=== PATIENT | male | born 1960 | race Caucasian/White ===

== ENCOUNTER 2019-12-26 08:48 | Day surgery (SDC) | payer OTHER, SELFPAY ==
[~2019-12-26] VITALS: Ht 172.7 cm; Wt 90.7 kg
[2019-12-26] MEDS ORDERED: fentaNYL citrate 0.05 MG/ML VIAL ONE (11:51)
[2019-12-26] MEDS ORDERED: LIDOCAINE 2% 100 MG/5 ML UJET TP ONE (11:52)
[2019-12-26] MEDS ORDERED: MIDAZOLAM 5 MG/5 ML VIAL ONE (11:52)
[2019-12-26] MEDS ORDERED: fentaNYL citrate 0.05 MG/ML VIAL IVP ONE (15:20)
[2019-12-26] MEDS ORDERED: MIDAZOLAM 2 MG/2 ML VIAL IVP ONE (15:20)
== END 2019-12-26 12:50 | disposition home or self-care (01) ==
LOC: MDS 08:48 → MMU 08:49 → MDS 12:50
PROVIDERS: ATTEND Internal Medicine Gastroenterology
DX: R19.5 Other fecal abnormalities (principal); D12.5 Benign neoplasm of sigmoid colon; K57.30 Diverticulosis of large intestine without perforation or abscess without bleeding; K64.8 Other hemorrhoids; Z20.828 Contact with and (suspected) exposure to other viral communicable diseases; I10 Essential (primary) hypertension; M19.90 Unspecified osteoarthritis, unspecified site; F17.210 Nicotine dependence, cigarettes, uncomplicated; Z98.890 Other specified postprocedural states; Z79.899 Other long term (current) drug therapy; E66.3 Overweight
CPT/HCPCS: 45385; J2250; J3010; U0003